=== PATIENT | female | born 1975 | race Caucasian/White ===

== ENCOUNTER → 2024-01-25 12:25 | Outpatient (REF) | payer BC, SELFPAY | LOC: WDC 12:25 | PROVIDERS: ATTENDING PHYSICIAN Obstetrics & Gynecology | DX: Z12.31 Encounter for screening mammogram for malignant neoplasm of breast (principal) | CPT/HCPCS: 77063; 77067 ==

== ENCOUNTER 2024-06-24 06:35 | Day surgery (SDC) | payer BC, SELFPAY | END 2024-06-24 09:49 | disposition home or self-care (01) | LOC: GI 06:35 | PROVIDERS: ATTENDING PHYSICIAN Internal Medicine Gastroenterology | DX: Z12.11 Encounter for screening for malignant neoplasm of colon (principal); K64.8 Other hemorrhoids | CPT/HCPCS: G0121 ==